=== PATIENT | male | born 1995 | race Caucasian/White ===

== ENCOUNTER 2020-11-05 15:18 | Emergency (ER) | payer SELFPAY ==
--- NOTE | 2020-11-05 16:36 | RAD ---
Portable frontal chest radiograph: 11/05/2020 COMPARISON: None HISTORY: Cough FINDINGS: Lungs are clear. Heart and mediastinal contours appear within normal limits. IMPRESSION: No acute findings.
[2020-11-06 02:23] LABS: SARS-CoV-2 MS2 Positive; SARS-CoV-2 N Gene Positive; SARS-CoV-2 S Gene Positive; SARS-CoV-2 by NAA DETECTED (NotDetected); SARS-CoV-2 orf1ab Positive
== END 2020-11-05 16:50 | disposition home or self-care (01) ==
LOC: MADERS 15:18
DX: U07.1 COVID-19 (principal); Z87.891 Personal history of nicotine dependence
CPT/HCPCS: 71045; 87635; U0003

== ENCOUNTER 2020-12-13 19:19 | Emergency (ER) | payer SELFPAY ==
[2020-12-13] MEDS ORDERED: Bicillin LA 1.2 MILLION UNITS/2 ML SYRINGE ONE (20:19)
[2020-12-13] MEDS ORDERED: Dexamethasone 10 MG/ML VIAL ONE (20:19)
== END 2020-12-13 20:44 | disposition home or self-care (01) ==
LOC: MADERS 19:19
DX: J02.0 Streptococcal pharyngitis (principal); Z87.891 Personal history of nicotine dependence
CPT/HCPCS: 87430; 96372; 99283; J0561; J1100